=== PATIENT | female | born 1975 | race Caucasian/White ===

== ENCOUNTER 2017-05-05 07:53 | Emergency (ER) | payer BC ==
[2017-05-05] MEDS ORDERED: CEFDINIR 300 MG CAPSULE PO ONE (08:09)
[2017-05-05] MEDS ORDERED: KETOROLAC 30 MG/ML VIAL IM ONE (08:09)
--- NOTE | 2017-05-05 08:17 | Emergency Department Record ---
History of Present Illness - General Chief complaint: ENT Stated complaint: EAR PAIN Time Seen by Provider: 05/05/17 08:00 Source: Patient Mode of Arrival: Ambulatory Limitations: No limitations - History of Present Illness Initial comments: The patient is here due to L ear pain. She has had a sinus infection recently and has developed L ear pain for the last few days. She did see her PCP 2 days ago and was started on Doxycycline. Now the pain is much worse. MD complaint: Ear pain Onset/Timin -: Days(s) Location: L ear Severity: Severe Quality: Aching Consistency: Constant Improves with: None Worsens with: None - Related Data Home Medications Medication Instructions Recorded Confirmed Last Taken Doxycycline Hyclate [Doxycycline] 100 mg PO BID 05/05/17 05/05/17 Unknown Previous Rx's Medication Instructions Recorded Cefdinir [Omnicef] 300 mg PO BID #20 cap 05/05/17 Ciprofloxacin HCl/Dexameth 4 drop EACH EAR BID #1 ml 05/05/17 [Ciprodex OTIC Suspension] Hydrocodone/Acetaminophen [[place] 1 - 2 each PO QID #10 tablet 05/05/17 5-325 Tablet] Allergies Allergy/AdvReac Type Severity Reaction Status Date / Time Penicillins Allergy PT UNSURE Verified 05/05/17 07:59 OF REACTION Travel Screening - Travel/Exposure Within Last 30 Days Have you traveled within the last 30 days?: No Review of Systems Constitutional: Denies: Chills, Fever Past Medical History - SOCIAL HISTORY Smoking Status: Current every day smoker Alcohol Use: None Drug Use: None - RESPIRATORY Hx Respiratory Disorders: No - CARDIOVASCULAR Hx Cardio Disorders: No - NEURO Hx Neuro Disorders: No - GI Hx GI Disorders: No - Hx Genitourinary Disorders: No - ENDOCRINE Hx Endocrine Disorders: No - MUSCULOSKELETAL Hx Musculoskeletal Disorders: No - PSYCH Hx Psych Problems: No - HEMATOLOGY/ONCOLOGY Hx Hematology/Oncology Disorders: No Family Medical History Any Significant Family History?: Yes Hx Cancer: Mother Physical Exam - General General Appearance: Alert, Cooperative, No acute distress - Head Head exam: Atraumatic, Normocephalic, Normal inspection - Eye Eye exam: Normal appearance, PERRL - ENT ENT exam: Normal orophraynx. negative: Normal exam, TM's normal bilaterally ( The R TM is normal but the L TM is erythematous and bulging.) Throat exam: Normal inspection. negative: Tonsillar erythema, Tonsillar exudate - Neck Neck exam: Normal inspection, Full ROM. negative: Lymphadenopathy, Tenderness - Respiratory Respiratory exam: Normal lung sounds bilaterally. negative: Respiratory distress - Cardiovascular Cardiovascular Exam: Regular rate, Normal rhythm, Normal heart sounds Course Vital Signs 05/05/17 07:56 Temperature 97.5 F L Pulse Rate 110 H Respiratory 18 Rate Blood Pressure 132/81 Pulse Ox 97 - Reevaluation(s) Reevaluation #1: I did discuss the need to stop the Doxycycline and start the Cefdinir and ass [place] for pain. She is to use the Ciprodex if the L ear ruptures and to see her PCP if not better in 3 days. 05/05/17 08:25 Disposition Disposition: Discharge Clinical Impression: Otitis media Qualifiers: Otitis media type: unspecified Chronicity: acute Qualified Code(s): H66.90 - Otitis media, unspecified, unspecified ear Disposition: Home, Self-Care Condition: (2) Stable Instructions: Otitis Media (ED) Additional Instructions: Please stop the Doxycycline and start the Cefdinir. Please add [place] to Motrin for pain and only use the Ciprodex if the L TM ruptures. Please see your PCP if not better in 2 days. Prescriptions: Cefdinir [Omnicef] 300 mg PO BID #20 cap Ciprofloxacin HCl/Dexameth [Ciprodex OTIC Suspension] 4 drop EACH EAR BID #1 ml Hydrocodone/Acetaminophen [[place] 5-325 Tablet] 1 - 2 each PO QID #10 tablet Forms: Patient Portal Access Time of Disposition: 08:28 Quality - Quality Measures Quality Measures: N/A - Blood Pressure Screening View Details: Yes Does Patient Have Any of the Following: No Blood Pressure Classification: Pre-Hypertensive BP Reading Systolic Measurement: 132 Diastolic Measurement: 81 Screening for High Blood Pressure: < Pre-Hypertensive BP, F/U Documented > [ [id number]] Pre-Hypertensive Follow-up Interventions: Referral to alternative/primary care provider.
== END 2017-05-05 08:48 | disposition home or self-care (01) ==
LOC: ER 07:53
DX: H66.92 Otitis media, unspecified, left ear (principal); F17.210 Nicotine dependence, cigarettes, uncomplicated
CPT/HCPCS: 99283 ×2; 96372; J1885; J3490